=== PATIENT | female | born 1940 | race Caucasian/White ===

== ENCOUNTER 2016-05-17 15:13 | Inpatient (IN) | payer MEDICARE, BC ==
[~2016-05-17] VITALS: Ht 172.7 cm; Wt 144.3 kg
[2016-05-17] MEDS ORDERED: CEFTRIAXONE 1GM BAG (ER ONLY) 50 ML IV ONE ×2 (16:30→16:34)
[2016-05-17] MEDS ORDERED: IV NS 0.9% 1,000 ML BAG IV ONE (16:30)
[2016-05-17] MEDS ORDERED: IV SET PRIMARY PUMP SET 1 EA INFUS.SET MC ONE ×2 (16:34→21:43)
[2016-05-17] MEDS ORDERED: NS 0.9% ONE (16:34)
[2016-05-17 16:42] LABS: BASOPHILS # (AUTO) 0.1 /CMM (0.0-0.2); BASOPHILS % (AUTO) 0.7 % (0.0-2.0); DIFF TOTAL % 100 %; EOSINOPHILS % (AUTO) 0.1 % (0.0-6.0); HEMATOCRIT 40 % (33-45); HEMOGLOBIN 13.3 g/dL (11.5-14.8); LYMPHOCYTES # (AUTO) 0.4 /CMM (0.8-4.8); LYMPHOCYTES % (AUTO) 4.2 % (20.0-44.0); MEAN CORPUSCULAR HEMOGLOBIN 29 PG (26.0-33.0); MEAN CORPUSCULAR HGB CONC 33 g/dl (31.0-36.0); MEAN CORPUSCULAR VOLUME 89 fL (82-100); MONOCYTES # (AUTO) 0.4 /CMM (0.1-1.30); NEUTROPHILS # (AUTO) 7.9 /CMM (1.8-8.9); PLATELET COUNT (AUTO) 129 /CMM (150-450); RED BLOOD CELL COUNT(AUTO) 4.52 MIL/uL (4.0-5.2); WHITE BLOOD COUNT (AUTO) 8.8 K/uL (4.3-11.0)
[2016-05-17 16:43] LABS: KETONES,URINE Trace (NEGATIVE); LEUKOCYTE ESTERASE ,URINE Large (NEGATIVE); PH,URINE 5.5 (5.0-8.0)
[2016-05-17 16:45] LABS: ADD UA MICROSCOPIC YES
[2016-05-17 16:45] LABS: ANION GAP 14 (5-14); CALCIUM, SERUM 8.8 mg/dL (8.5-10.1); CARBON DIOXIDE 25 mmol/L (21-32); CHLORIDE 104 mmol/L (98-107); CREATININE 1.3 mg/dL (0.6-1.3); GLUCOSE 271 mg/dL (74-106); POTASSIUM 3.7 mmol/L (3.5-5.1); SODIUM SERUM 139 mmol/L (136-145); UREA NITROGEN, BLOOD 26 mg/dL (7-18)
[2016-05-17 16:53] LABS: TROPONIN I < 0.017 ng/mL (0.00-0.056)
[2016-05-17 16:58] LABS: ADD URINE CULTURE YES; WBC,URINE 81-100 /HPF (0-3)
[2016-05-17 17:01] LABS: ALANINE AMINOTRANSFERASE 18 U/L (12-78); ALBUMIN 3.1 g/dL (3.4-5.0); ASPARTATE AMINOTRANSFERASE 16 U/L (15-37); BILIRUBIN,DIRECT 0.3 mg/dL (0.0-0.2); BILIRUBIN,TOTAL 1.5 mg/dL (0.2-1.0); INDIRECT BILIRUBIN 1.2 mg/dL (0.0-1.1); LACTIC ACID 1.5 mmol/L (0.4-2.0); TOTAL PROTEIN, SERUM 6.8 g/dL (6.4-8.2)
[2016-05-17 17:06] LABS: INR 1.09 (0.87-1.13); PROTHROMBIN TIME 11.4 SECS (9.5-12.7)
[2016-05-17] MEDS ORDERED: IV NS 0.9% 2,000 ML IV ONE (17:56)
[2016-05-17] MEDS ORDERED: LOSA50TA21 PO (18:11)
[2016-05-17] MEDS ORDERED: METF500T4 PO (18:11)
[2016-05-17] MEDS ORDERED: THYR90TA PO (18:11)
[2016-05-17 20:00] VITALS: BP 157/65
[2016-05-17] MEDS ORDERED: IV NS 0.9% 1,000 ML IV PRN (20:17)
[2016-05-17] MEDS ORDERED: ENOXAPARIN SODIUM 40 MG/0.4 ML DISP.SYRIN SQ SCH (20:30)
[2016-05-17] MEDS ORDERED: ACETAMINOPHEN 325 MG TABLET PO PRN (20:30)
[2016-05-17] MEDS ORDERED: ONDANSETRON HCL/PF 4 MG/2 ML VIAL IVP PRN (20:30)
[2016-05-17] MEDS ORDERED: ZOLPIDEM TARTRATE 5 MG TABLET PO PRN (20:30)
[2016-05-17] MEDS ORDERED: HYDROCODONE/APAP 10/325MG 1 EA TABLET PO PRN (20:30)
[2016-05-17] MEDS ORDERED: MORPHINE SULFATE INJ 2 MG/ML DISP.SYRIN IV PRN (20:30)
[2016-05-17] MEDS ORDERED: Z GUARD REMEDY 2 OZ OINT TP PRN (20:30)
[2016-05-17] MEDS ORDERED: MAGNESIUM HYDROXIDE 30 ML UDC PO PRN (20:30)
[2016-05-17 21:00] VITALS: BP 157/55
[2016-05-18 06:43] LABS: BASOPHILS # (AUTO) 0.1 /CMM (0.0-0.2); BASOPHILS % (AUTO) 0.5 % (0.0-2.0); DIFF TOTAL % 100 %; EOSINOPHILS % (AUTO) 0.4 % (0.0-6.0); HEMATOCRIT 38 % (33-45); HEMOGLOBIN 12.5 g/dL (11.5-14.8); LYMPHOCYTES # (AUTO) 1.8 /CMM (0.8-4.8); LYMPHOCYTES % (AUTO) 15.6 % (20.0-44.0); MEAN CORPUSCULAR HEMOGLOBIN 30 PG (26.0-33.0); MEAN CORPUSCULAR HGB CONC 33 g/dl (31.0-36.0); MEAN CORPUSCULAR VOLUME 90 fL (82-100); MONOCYTES # (AUTO) 1.1 /CMM (0.1-1.30); MONOCYTES % (AUTO) 9.9 % (2.0-12.0); NEUTROPHILS # (AUTO) 8.5 /CMM (1.8-8.9); NEUTROPHILS % (AUTO) 73.6 % (43.0-81.0); PLATELET COUNT (AUTO) 127 /CMM (150-450); RED BLOOD CELL COUNT(AUTO) 4.19 MIL/uL (4.0-5.2); WHITE BLOOD COUNT (AUTO) 11.6 K/uL (4.3-11.0)
[2016-05-18 07:01] LABS: PHOSPHORUS 3.9 mg/dL (2.5-4.9); POTASSIUM 4.1 mmol/L (3.5-5.1)
[2016-05-18 07:37] LABS: THYROID STIMULATING HORMONE 0.844 uIU/mL (0.358-3.74)
[2016-05-18 08:00] VITALS: BP 121/86
[2016-05-18] MEDS: METFORMIN 500 MG TABLET PO SCH ×2 (08:28→18:06)
[2016-05-18] MEDS: LOSARTAN POTASSIUM 50 MG TABLET PO SCH ×2 (08:29→08:32)
[2016-05-18] MEDS: PANTOPRAZOLE 40 MG TABLET.DR PO SCH (08:29)
[2016-05-18] MEDS: THYROID 30 MG TABLET PO SCH (10:00)
[2016-05-18] MEDS: METOPROLOL TARTRATE 25 MG TABLET PO SCH ×2 (11:51→22:24)
[2016-05-18] MEDS ORDERED: DEXTROSE 50%-WATER 50 ML DISP.SYRIN IV PRN (12:00)
[2016-05-18] MEDS: BLOOD SUGAR DIAGNOSTIC 1 EACH STRIP IN SCH ×3 (12:29→22:24)
[2016-05-18] MEDS: INSULIN REGULAR, HUMAN 100 UNIT/ML 3 ML VIAL SQ PRN ×2 (12:37→18:13)
[2016-05-18] MEDS ORDERED: SECONDARY IV SET 1 EA INFUS.SET MC ONE (14:58)
[2016-05-18] MEDS: CEFTRIAXONE 1 G in IV D5W 50 ML IV SCH (15:10)
[2016-05-18 16:00] VITALS: BP 123/87
[2016-05-18 20:00] VITALS: BP 109/88
[2016-05-18] MEDS: *INSULIN REGULAR(HUMULIN R)HUM 100 UNIT/ML VIAL SQ PRN (22:27)
[2016-05-19] VITALS: BP 157/92
[2016-05-19 06:00] VITALS: BP 130/92
[2016-05-19] MEDS: PANTOPRAZOLE 40 MG TABLET.DR PO SCH (06:53)
[2016-05-19] MEDS: BLOOD SUGAR DIAGNOSTIC 1 EACH STRIP IN SCH ×4 (06:55→22:40)
[2016-05-19] MEDS: INSULIN REGULAR, HUMAN 100 UNIT/ML 3 ML VIAL SQ PRN ×3 (06:58→16:34)
[2016-05-19 08:00] LABS: BASOPHILS % (AUTO) 0.3 % (0.0-2.0); DIFF TOTAL % 100 %; EOSINOPHILS # (AUTO) 0.2 /CMM (0.0-0.7); EOSINOPHILS % (AUTO) 1.8 % (0.0-6.0); HEMATOCRIT 41 % (33-45); HEMOGLOBIN 13.4 g/dL (11.5-14.8); LYMPHOCYTES # (AUTO) 1.3 /CMM (0.8-4.8); LYMPHOCYTES % (AUTO) 14.9 % (20.0-44.0); MEAN CORPUSCULAR HEMOGLOBIN 30 PG (26.0-33.0); MEAN CORPUSCULAR HGB CONC 33 g/dl (31.0-36.0); MEAN CORPUSCULAR VOLUME 89 fL (82-100); MONOCYTES % (AUTO) 11.1 % (2.0-12.0); NEUTROPHILS # (AUTO) 6.2 /CMM (1.8-8.9); NEUTROPHILS % (AUTO) 71.9 % (43.0-81.0); PLATELET COUNT (AUTO) 146 /CMM (150-450); RED BLOOD CELL COUNT(AUTO) 4.54 MIL/uL (4.0-5.2); WHITE BLOOD COUNT (AUTO) 8.7 K/uL (4.3-11.0)
[2016-05-19 08:11] LABS: CALCIUM, SERUM 8.6 mg/dL (8.5-10.1); PHOSPHORUS 3.2 mg/dL (2.5-4.9); POTASSIUM 4.2 mmol/L (3.5-5.1)
[2016-05-19] MEDS: METOPROLOL TARTRATE 25 MG TABLET PO SCH ×2 (09:09→20:46)
[2016-05-19] MEDS: THYROID 30 MG TABLET PO SCH (09:09)
[2016-05-19] MEDS: METFORMIN 500 MG TABLET PO SCH ×2 (09:09→16:27)
[2016-05-19] MEDS: MAG HYDROX/AL HYDROX/SIMETH 30 ML UDC PO PRN (09:12)
[2016-05-19 12:00] VITALS: BP 115/93
[2016-05-19] MEDS ORDERED: Magnesium 1GM/D5W 100ML PREMIX 100 ML IV SCH (12:03)
[2016-05-19] MEDS ORDERED: SECONDARY IV SET 1 EA INFUS.SET MC ONE ×2 (12:46→16:22)
[2016-05-19] MEDS: Magnesium 1GM/D5W 100ML PREMIX 100 ML IV SCH ×3 (12:50→15:01)
[2016-05-19] MEDS: CEFTRIAXONE 1 G in IV D5W 50 ML IV SCH (16:28)
[2016-05-19] MEDS ORDERED: METOPROLOL TARTRATE 25 MG TABLET PO ONE (16:30)
[2016-05-19 20:00] VITALS: BP 154/100
[2016-05-19] MEDS: *INSULIN REGULAR(HUMULIN R)HUM 100 UNIT/ML VIAL SQ PRN (22:41)
[2016-05-20] VITALS: BP 145/87
[2016-05-20] MEDS: HYDROCODONE/APAP 5/325MG 1 EACH TABLET PO PRN ×2 (00:10→21:52)
[2016-05-20 04:00] VITALS: BP 129/82
[2016-05-20] MEDS ORDERED: IV NS 0.9% 500 ML IV ONE (04:10)
[2016-05-20] MEDS: BLOOD SUGAR DIAGNOSTIC 1 EACH STRIP IN SCH ×4 (05:31→22:18)
[2016-05-20 08:00] VITALS: BP 130/90
[2016-05-20] MEDS: PANTOPRAZOLE 40 MG TABLET.DR PO SCH (08:02)
[2016-05-20] MEDS: METFORMIN 500 MG TABLET PO SCH ×2 (08:02→17:10)
[2016-05-20] MEDS: THYROID 30 MG TABLET PO SCH (08:02)
[2016-05-20] MEDS: METOPROLOL TARTRATE 25 MG TABLET PO SCH ×2 (08:02→23:06)
[2016-05-20 08:05] LABS: BASOPHILS % (AUTO) 0.2 % (0.0-2.0); DIFF TOTAL % 100 %; EOSINOPHILS # (AUTO) 0.2 /CMM (0.0-0.7); EOSINOPHILS % (AUTO) 2.5 % (0.0-6.0); HEMATOCRIT 42 % (33-45); HEMOGLOBIN 13.9 g/dL (11.5-14.8); LYMPHOCYTES # (AUTO) 1.2 /CMM (0.8-4.8); MEAN CORPUSCULAR HEMOGLOBIN 30 PG (26.0-33.0); MEAN CORPUSCULAR HGB CONC 33 g/dl (31.0-36.0); MEAN CORPUSCULAR VOLUME 89 fL (82-100); MONOCYTES # (AUTO) 0.8 /CMM (0.1-1.30); MONOCYTES % (AUTO) 12.2 % (2.0-12.0); NEUTROPHILS # (AUTO) 4.5 /CMM (1.8-8.9); NEUTROPHILS % (AUTO) 67.1 % (43.0-81.0); PLATELET COUNT (AUTO) 158 /CMM (150-450); RED BLOOD CELL COUNT(AUTO) 4.73 MIL/uL (4.0-5.2); WHITE BLOOD COUNT (AUTO) 6.7 K/uL (4.3-11.0)
[2016-05-20 08:23] LABS: CALCIUM, SERUM 8.2 mg/dL (8.5-10.1); CREATININE 0.9 mg/dL (0.6-1.3); POTASSIUM 4.2 mmol/L (3.5-5.1)
[2016-05-20 12:00] VITALS: BP 145/96
[2016-05-20] MEDS: INSULIN REGULAR, HUMAN 100 UNIT/ML 3 ML VIAL SQ PRN ×2 (13:25→22:21)
[2016-05-20 16:00] VITALS: BP 144/89
[2016-05-20] MEDS: ACIDOPHILUS/BULGARICUS 1 EACH TAB.CHEW PO SCH (17:10)
[2016-05-20] MEDS: LEVOFLOXACIN (500MG) 500 MG TABLET PO SCH (17:32)
[2016-05-20 20:00] VITALS: BP_SYST 135; BP_DIAS 92; BP_DIAS 97
[2016-05-21] VITALS: BP 111/64
[2016-05-21] MEDS ORDERED: DILTIAZEM HCL 30 MG TABLET ONE (00:45)
[2016-05-21] MEDS ORDERED: DILTIAZEM HCL 30 MG TABLET PO SCH (01:00)
[2016-05-21 04:00] VITALS: BP 122/74
[2016-05-21] MEDS: BLOOD SUGAR DIAGNOSTIC 1 EACH STRIP IN SCH ×4 (06:18→21:17)
[2016-05-21] MEDS: METOPROLOL TARTRATE 25 MG TABLET PO SCH ×4 (06:18→23:37)
[2016-05-21 06:46] LABS: CALCIUM, SERUM 8.4 mg/dL (8.5-10.1); CREATININE 0.9 mg/dL (0.6-1.3); POTASSIUM 4.5 mmol/L (3.5-5.1)
[2016-05-21 08:00] VITALS: BP 163/79
[2016-05-21] MEDS: PANTOPRAZOLE 40 MG TABLET.DR PO SCH (08:55)
[2016-05-21] MEDS: METFORMIN 500 MG TABLET PO SCH ×2 (08:55→16:37)
[2016-05-21] MEDS: THYROID 30 MG TABLET PO SCH (08:56)
[2016-05-21] MEDS: ACIDOPHILUS/BULGARICUS 1 EACH TAB.CHEW PO SCH ×3 (08:57→16:38)
[2016-05-21 12:00] VITALS: BP 152/85
[2016-05-21] MEDS: DILTIAZEM HCL 30 MG TABLET PO SCH ×3 (12:02→23:37)
[2016-05-21] MEDS: *INSULIN REGULAR(HUMULIN R)HUM 100 UNIT/ML VIAL SQ PRN ×2 (12:08→21:24)
[2016-05-21 16:00] VITALS: BP 120/78
[2016-05-21] MEDS: LEVOFLOXACIN (500MG) 500 MG TABLET PO SCH (16:37)
[2016-05-21] MEDS: INSULIN REGULAR, HUMAN 100 UNIT/ML 3 ML VIAL SQ PRN (16:39)
[2016-05-21 20:00] VITALS: BP 104/65
[2016-05-22] VITALS (7 sets, daily range): BP systolic 127–147; BP diastolic 63–90
[2016-05-22] MEDS: METOPROLOL TARTRATE 25 MG TABLET PO SCH ×2 (06:36→12:07)
[2016-05-22] MEDS: DILTIAZEM HCL 30 MG TABLET PO SCH ×2 (06:36→12:06)
[2016-05-22] MEDS: BLOOD SUGAR DIAGNOSTIC 1 EACH STRIP IN SCH ×4 (06:38→22:37)
[2016-05-22] MEDS: MAG HYDROX/AL HYDROX/SIMETH 30 ML UDC PO PRN (06:41)
[2016-05-22] MEDS: INSULIN REGULAR, HUMAN 100 UNIT/ML 3 ML VIAL SQ PRN ×3 (06:47→18:15)
[2016-05-22 06:59] LABS: CALCIUM, SERUM 8.6 mg/dL (8.5-10.1); CREATININE 1.1 mg/dL (0.6-1.3); POTASSIUM 4.5 mmol/L (3.5-5.1)
[2016-05-22] MEDS: THYROID 30 MG TABLET PO SCH (08:23)
[2016-05-22] MEDS: PANTOPRAZOLE 40 MG TABLET.DR PO SCH (08:23)
[2016-05-22] MEDS: ACIDOPHILUS/BULGARICUS 1 EACH TAB.CHEW PO SCH ×3 (08:23→16:10)
[2016-05-22] MEDS: METFORMIN 500 MG TABLET PO SCH ×2 (08:23→16:10)
[2016-05-22] MEDS ORDERED: METOPROLOL SUCCINATE 50 MG TAB.SR.24H PO SCH (15:30)
[2016-05-22] MEDS: LEVOFLOXACIN (500MG) 500 MG TABLET PO SCH (16:10)
[2016-05-22] MEDS ORDERED: DILTIAZEM HCL 30 MG TABLET PO PRN (17:00)
[2016-05-22] MEDS: *INSULIN REGULAR(HUMULIN R)HUM 100 UNIT/ML VIAL SQ PRN (22:38)
[2016-05-23] VITALS: BP 159/81
[2016-05-23 04:00] VITALS: BP 152/75
[2016-05-23] MEDS: BLOOD SUGAR DIAGNOSTIC 1 EACH STRIP IN SCH ×2 (06:07→12:09)
[2016-05-23] MEDS: INSULIN REGULAR, HUMAN 100 UNIT/ML 3 ML VIAL SQ PRN ×2 (06:10→12:19)
[2016-05-23 06:33] LABS: BASOPHILS % (AUTO) 0.5 % (0.0-2.0); DIFF TOTAL % 100 %; EOSINOPHILS # (AUTO) 0.2 /CMM (0.0-0.7); EOSINOPHILS % (AUTO) 2.7 % (0.0-6.0); HEMATOCRIT 42 % (33-45); HEMOGLOBIN 13.8 g/dL (11.5-14.8); LYMPHOCYTES # (AUTO) 1.7 /CMM (0.8-4.8); LYMPHOCYTES % (AUTO) 21.7 % (20.0-44.0); MEAN CORPUSCULAR HEMOGLOBIN 29 PG (26.0-33.0); MEAN CORPUSCULAR HGB CONC 33 g/dl (31.0-36.0); MEAN CORPUSCULAR VOLUME 90 fL (82-100); MONOCYTES # (AUTO) 0.8 /CMM (0.1-1.30); MONOCYTES % (AUTO) 9.5 % (2.0-12.0); NEUTROPHILS # (AUTO) 5.2 /CMM (1.8-8.9); NEUTROPHILS % (AUTO) 65.6 % (43.0-81.0); PLATELET COUNT (AUTO) 231 /CMM (150-450); RED BLOOD CELL COUNT(AUTO) 4.69 MIL/uL (4.0-5.2)
[2016-05-23 06:52] LABS: CALCIUM, SERUM 8.8 mg/dL (8.5-10.1); CREATININE 1.1 mg/dL (0.6-1.3); PHOSPHORUS 3.6 mg/dL (2.5-4.9); POTASSIUM 4.4 mmol/L (3.5-5.1)
[2016-05-23 08:00] VITALS: BP 114/77
[2016-05-23] MEDS: PANTOPRAZOLE 40 MG TABLET.DR PO SCH (08:56)
[2016-05-23] MEDS: METFORMIN 500 MG TABLET PO SCH (08:56)
[2016-05-23] MEDS: ACIDOPHILUS/BULGARICUS 1 EACH TAB.CHEW PO SCH ×2 (08:56→12:09)
[2016-05-23] MEDS: THYROID 30 MG TABLET PO SCH (08:57)
[2016-05-23] MEDS ORDERED: DILTIAZEM HCL CD 240 MG PO SCH (09:00)
[2016-05-23] MEDS ORDERED: LEVO500T15 PO (11:57)
[2016-05-23] MEDS ORDERED: DILT240C88 PO (11:57)
[2016-05-23] MEDS ORDERED: METO50TA7 PO (11:57)
[2016-05-23 12:00] VITALS: BP 130/71
== END 2016-05-23 17:17 | disposition home or self-care (01) | DRG 871 ==
LOC: ER 15:15 → EDBD 15:15 → MEDSG1 18:36 → TELE1 05-18 11:04
DX: A41.51 Sepsis due to Escherichia coli [E. coli] (principal); N17.0 Acute kidney failure with tubular necrosis; I50.33 Acute on chronic diastolic (congestive) heart failure; D68.59 Other primary thrombophilia; R17 Unspecified jaundice; N10 Acute pyelonephritis; E11.9 Type 2 diabetes mellitus without complications; E03.9 Hypothyroidism, unspecified; I48.0 Paroxysmal atrial fibrillation; I11.0 Hypertensive heart disease with heart failure; R32 Unspecified urinary incontinence; I89.0 Lymphedema, not elsewhere classified; E11.40 Type 2 diabetes mellitus with diabetic neuropathy, unspecified; E66.01 Morbid (severe) obesity due to excess calories; E86.0 Dehydration; I25.10 Atherosclerotic heart disease of native coronary artery without angina pectoris
CPT/HCPCS: 36415; 71010-TC; 80048-TC; 80061-TC; 80076-TC; 81000-TC; 82962-TC; 83605-TC; 83735-TC; 84100-TC; 84443-TC; 84484-TC; 85025-TC; 85730-TC; 87040-TC; 87081-TC; 87086-TC; 87186-TC; 87400; 93307-TC; 94799-TC; 97001-TC; 97110-TC; 97116-TC; 97530-TC; A4606; J0696; J1815; J3475; J7030; J7040; J7060; Z7610